=== PATIENT | female | born 1935 | race Asian ===

== ENCOUNTER → 2018-01-12 | Outpatient (CLI) | payer MEDICARE, MEDICAID ==
[~2018-01-12] MED LIST: AMLO-512 PO; CIP250 PO; CLON-570 PO; DOCU-119 PO; FA/V1TAB PO; FOLI1 PO; GLIP10 PO; METR250T PO; PHOSLOC PO; SIMV-259 PO
== END | disposition home or self-care (01) ==
LOC: RADPV 13:31
PROVIDERS: ATTEND Internal Medicine
DX: R91.8 Other nonspecific abnormal finding of lung field (principal); I51.7 Cardiomegaly; I70.0 Atherosclerosis of aorta
CPT/HCPCS: 71046

== ENCOUNTER → 2018-05-21 | Outpatient (CLI) | payer MEDICARE, MEDICAID | END | disposition home or self-care (01) | LOC: RADPV 14:54 | PROVIDERS: ATTEND Internal Medicine | DX: I70.202 Unspecified atherosclerosis of native arteries of extremities, left leg (principal) | CPT/HCPCS: 73503 ==